=== PATIENT | female | born 1945 ===

== ENCOUNTER 2016-11-26 18:14 | Emergency (ER) | payer MEDICARE, OTHER ==
[~2016-11-26] VITALS: Ht 167.6 cm; Wt 78.9 kg
[2016-11-26] MEDS ORDERED: SYNTHROID75 MC1 PO (18:38)
[2016-11-26] MEDS ORDERED: OMEPRAZOLE40 M2 PO (18:38)
[2016-11-26] MEDS ORDERED: KLONOPIN0.5 M1 PO (18:38)
[2016-11-26] MEDS ORDERED: VIACTIV SOFT C1 EAC1 PO (18:39)
[2016-11-26] MEDS ORDERED: PROBIOTIC1 EAC9 PO (18:39)
[2016-11-26] MEDS ORDERED: MOBIC7.5 M2 PO (18:39)
[2016-11-26] MEDS ORDERED: ASPIRIN81 M1 PO (18:39)
[2016-11-26] MEDS ORDERED: VITAMIN D31000 UNI3 PO (18:39)
[2016-11-26] MEDS ORDERED: IODINE PO (18:40)
[2016-11-26] MEDS ORDERED: CALCIUM CARBON500 M2 PO (18:40)
[2016-11-26] MEDS ORDERED: VITAMIN C500 M3 PO (18:40)
[2016-11-26] MEDS ORDERED: TYLENOL EXTRA500 M1 PO (18:41)
== END 2016-11-26 19:53 ==
LOC: EDMED 18:14
DX: M66.0 Rupture of popliteal cyst (principal); E03.9 Hypothyroidism, unspecified; K21.9 Gastro-esophageal reflux disease without esophagitis; Z79.82 Long term (current) use of aspirin